=== PATIENT | male | born 1945 | race Caucasian/White ===

== ENCOUNTER 2023-03-13 08:19 | Day surgery (SDC) | payer MEDICARE, OTHER, SELFPAY ==
--- NOTE | 2023-03-13 | PATH_ITS ---
[facility] Accession Number: [id number] No. of containers..02 Tissue . 01 Material submitted: . PART A: colon - ASCENDING COLON POLYP PART B: colon - DESCENDING COLON POLYP . 01 Diagnosis: A. Ascending Colon, Polyp, Biopsy: Tubular adenoma. . B. Descending Colon, Polyp, Biopsy: Benign lymphoid aggregate. MRV 03/16/2023 1508 Local . 01 Electronically signed: . Karli Marmolejo MD, Pathologist NPI- [id number] . 01 Gross description: . Part A: ASCENDING COLON POLYP: Received in formalin is 1 fragment(s) of gage, soft tissue measuring 0.5 x 0.2 x 0.2 cm submitted entirely in 1 cassette(s) Part B: DESCENDING COLON POLYP: Received in formalin is 1 fragment(s) of gage, soft tissue measuring 0.3 x 0.3 x 0.3 cm submitted entirely in 1 cassette(s) /ROEL 03/14/2023 1928 Local . 01 Pathologist provided ICD-10: D12.2 . 01 CPT . 756543, 866555 Specimen Comment: A courtesy copy of this report has been sent to [phone] Performed at: 01 [facility] [address] [facility] [address] [place] [address] [address] [facility], [place], [place] [id number] MD Navdeep Kumar MD Phone: [phone]
[2023-03-13 08:36] VITALS: BP 143/71; PULSE 57; RESP 16; TEMP 36; O2SAT 96; BMI 30.7
[2023-03-13] MEDS: LACTATED RINGERS 1,000 ML 200 ML IV (08:59)
--- NOTE | 2023-03-13 09:23 | PM.HP.1 ---
History of Present Illness History of Present Illness Date Patient Seen: 03/13/23 Time Patient Seen: 09:23 Chief complaint: Colonoscopy Narrative: 77-year-old man here for screening colonoscopy. Personal history of colonic polyps last colonoscopy was approximately 5 years ago. No family history of intestinal malignancy in first-degree relatives. No abdominal complaints including but not limited to blood per rectum unintentional weight loss nausea anorexia or abdominal pain. [facility] Family History (Updated 08/08/16 @ 00:00 by Conversion Provider) Brother Heart disease Hypertension High cholesterol Father Heart disease Hypertension High cholesterol Mother Stroke Social History household members: none Smoking Status: Current every day smoker alcohol intake: current Meds Home Medications and Allergies Home Medications Medication Instructions Recorded Confirmed Type ASPIRIN (Aspirin EC) 81 mg PO Q DAY ##0 06/15/11 History FOLIC ACID (#FOLATE) 0.4 mg PO QDAY ##0 06/15/11 History Fish Oil 3,000 mg PO Q DAY ##0 06/15/11 History ibuprofen 200 mg capsule 200 mg PO PRN PRN ##0 06/15/11 History cetirizine 10 mg tablet 10 mg PO QDAYP PRN ##0 12/14/11 History CHOLECALCIFEROL (VITAMIN D3) 400 unit PO QDAY ##0 10/28/12 History (Vitamin D3) fluticasone propionate 50 2 spray intranasal BID ##16 11/28/16 Rx mcg/actuation nasal spray,suspension ciprofloxacin HCl 500 mg tablet 500 mg PO BID #20 tabs 01/24/17 Rx (Cipro) hydrocortisone acetate 30 mg 30 mg DC HS #20 supp 01/24/17 Rx rectal suppository (Proctocort) fluticasone propionate 220 0 INH BID ##3 05/28/17 Rx mcg/actuation HFA aerosol inhaler (Flovent HFA) rosuvastatin 40 mg tablet (Crestor) 40 mg PO QDAY #90 tabs 05/28/17 Rx testosterone 1 % (25 mg/2.5 gram) 1 % topical QDAY ##113 07/12/17 Rx transdermal gel packet (AndroGel) amlodipine 5 mg tablet (Norvasc) 5 mg PO QDAY #90 tabs 07/16/17 Rx lisinopril 20 25 PO QDAY 03/13/23 History mg-hydrochlorothiazide 12.5 mg tablet Allergies Allergy/AdvReac Type Severity Reaction Status Date / Time No Known Drug Allergies Allergy Verified 03/13/23 07:21 Exam Vital Signs (past 8 hours): - 03/13/23 08:36 Temperature 96.8 F L Pulse Rate 57 L Respiratory Rate 16 Blood Pressure 143/71 H Pulse Oximetry 96 Oxygen Delivery Method Room Air Oxygen Delivery Method Room Air Narrative Exam Narrative: General adult man alert oriented no distress Abdomen soft nontender nondistended Assessment & Plan Assessment and plan (1) Personal history of colonic polyps: Status: Acute Assessment & Plan narrative: The patient requires colorectal screening and colonoscopy is recommended. Technical details were discussed. Risks, benefits, alternatives explained. Risks including but not limited to myocardial infarction, aspiration, bleeding, pain, missed lesion, incomplete examination, need for further radiographic studies, colonic perforation, and need for major abdominal surgery were discussed. All questions were answered to their satisfaction, and they are in agreement with this plan.
[2023-03-13 09:51] VITALS: BP 122/62; PULSE 61; RESP 16; TEMP 36.1; O2SAT 98
--- NOTE | 2023-03-13 09:53 | P.OP.COLON_ITS ---
Operative Date/Time/Diagnoses Date of procedure: 03/13/23 Time of procedure: 09:53 Pre-op diagnosis: Personal history of colonic polyps Post-op diagnosis: other (Colonic polyps x2) Procedure & Clinicians Study performed: Colonoscopy and polypectomy Same procedure as scheduled: Yes Indications: Personal history of colonic polyps here for colorectal screening Surgeon: Karthik Rascon Procedure Notes Procedure in detail: The history and physical was performed/updated and the patient is ASA class is 2. The procedure was discussed in detail with the patient. Potential risks complications including infection, bleeding, missed diagnosis, perforation, need for surgery, and were explained. Their questions were answered and informed consent was obtained. Patient was brought to the procedure room and placed standard monitoring equipm ent. The patient's vital signs were monitored continuously throughout the entire procedure. Prior to starting time-out was performed. The patient was placed in the left lateral recumbent position. Procedural sedation was administered by anesthesia. Examination began with a thorough inspection of the perianal area there was no evidence of fissures, fistulae, external hemorrhoids or cutaneous malignancy. The colonoscopy scope was then placed into the anal canal and was advanced to the cecum, which was identified by the ileocecal valve, the appendiceal orifice and the confluence of the taenia. The scope was then slowly withdrawn examining colon thoroughly in all directions, irrigating it of any residual stool. The colon was most notable for severe diverticulosis involving the sigmoid and descending colon. Within the ascending colon there was a 5 mm polyp removed with biopsy forceps. A approximately 5 mm polyp was identified descending colon and removed with forceps. A previously inked section of the sigmoid colon was closely examined the tattoo was visible but there was no evidence of residual polyp. The patient tolerated the procedure well. They will be discharged once criteria are met. The prep was of fair quality. The withdrawl time was 6 minutes. Specimen(s): other (Ascending and descending colonic polyps) Impression: Colonic polyps x2 Post-procedure Recommendations: High fiber diet Plan for aftercare: Follow-up is dependent on pathology findings Disposition: same day surgery
[2023-03-13 09:56] VITALS: BP 115/63; PULSE 73; RESP 16; O2SAT 99
[2023-03-13 10:01] VITALS: BP 125/59; PULSE 58; RESP 16; O2SAT 100
[2023-03-13 10:06] VITALS: BP 125/59; PULSE 66; RESP 16; TEMP 36.2; O2SAT 99
== END 2023-03-13 10:26 | disposition home or self-care (01) ==
PROVIDERS: PCP Family Medicine; Referring Provider Surgery; Visit Provider Surgery
PROC: 0DJD8ZZ Inspection of Lower Intestinal Tract, Via Natural or Artificial Opening Endoscopic (ICD-10-PCS; CPT 45378; principal; 2023-03-13 09:15)
DX: Z12.11 Encounter for screening for malignant neoplasm of colon (principal); Z86.010 Personal history of colon polyps; K57.30 Diverticulosis of large intestine without perforation or abscess without bleeding; D12.2 Benign neoplasm of ascending colon
CPT/HCPCS: 45380; J2704

== ENCOUNTER → 2023-03-20 11:56 | Outpatient (CLI) | payer MEDICARE, OTHER, SELFPAY ==
--- NOTE | 2023-03-20 | DI.CT.S_ITS ---
PROCEDURE: CT CHEST WO CON INDICATIONS: Nicotine dependence TECHNIQUE: Noncontrast 2.0-2.5 mm thick sections acquired from the pulmonary apices to the posterior costophrenic angles. 7 mm thick axial MIP, and 5 mm coronal and sagittal reformats were then acquired. A low radiation dose technique was utilized. COMPARISON: None. FINDINGS: Image quality: Diagnostic, given the low radiation dose technique. Lungs and pleura: No pulmonary nodules or acute airspace opacities. Very mild tree-in-bud pulmonary radiopacities are present within the posterior aspect of the left lower lobe (series 3/image 127). No pleural effusion or pneumothorax. Mediastinum: Heart size is normal. No pericardial effusion. No mediastinal adenopathy by size criteria. Thoracic aorta and central pulmonary arteries are normal in size. Dense atheromatous calcifications are present at the thoracic aortic arch and within the descending thoracic aorta. Esophagus is normal in caliber. No hiatal hernia. Bones and chest wall: Patient is status post median sternotomy. No suspicious bony lesions. No vertebral body compression fractures. No axillary or supraclavicular adenopathy by size criteria. Thyroid gland is unremarkable. Abdomen: Visualized upper abdomen solid organs and bowel loops appear normal in the absence of contrast. IMPRESSION: 1. Tree-in-bud pulmonary radiopacities within the left lobe suggesting mild pulmonary infection. Consider 3-6 month follow-up to ensure resolution. 2. No other suspicious pulmonary nodules or pulmonary lesions. 3. Dense aortic atherosclerosis. LUNG-RADS 3; probably benign. 3-6 month follow-up to ensure resolution of probable pulmonary infection or aspiration. Dictated by: Neetu Tovar M.D. on 03/20/2023 at 13:38 Approved by: Neetu Tovar M.D. on 03/20/2023 at 13:41
== END ==
PROVIDERS: PCP Family Medicine; Referring Provider Family Medicine; Visit Provider Family Medicine
DX: I70.0 Atherosclerosis of aorta (principal); F17.200 Nicotine dependence, unspecified, uncomplicated
CPT/HCPCS: 71250

== ENCOUNTER → 2024-07-22 12:03 | Outpatient (CLI) | payer MEDICARE, OTHER, SELFPAY ==
--- NOTE | 2024-07-22 13:00 | DI.CT.S_ITS ---
PROCEDURE: CT LUNG LOW DOSE SCREENING INDICATIONS: CURRENT SMOKER,PERSONAL HX NICOTINE DEPENDENCE TECHNIQUE: Noncontrast 2.0-2.5 mm thick sections acquired from the pulmonary apices to the posterior costophrenic angles. 7 mm thick axial MIP, and 5 mm coronal and sagittal reformats were then acquired. For radiation dose reduction, the following was used: automated exposure control, adjustment of mA and/or kV according to patient size. COMPARISON: None. FINDINGS: Image quality: Diagnostic. Lower Neck: No enlarged lymph nodes. Thyroid: No thyroid nodules which require sonographic follow up, per consensus guidelines. Axillae: No enlarged lymph nodes. Chest Wall: Unremarkable. Bones: 2 mm Lungs and Pleura: No pneumothorax or pleural effusions. 3 mm solid nodule, right lower lobe (series 3, image 140). Heart: Heart size is normal. No pericardial effusion. Prior CABG. Thoracic Vessels: The aorta and pulmonary arteries demonstrate normal size. Mediastinum and Saranya: No enlarged lymph nodes. Esophagus: No wall thickening. No hiatal hernia. Upper Abdomen: Visualized upper abdomen solid organs and bowel loops appear normal. IMPRESSION: No suspicious pulmonary nodules. LUNG-RADS 2; continued annual screening, if eligible. Clinically Significant Non-pulmonary Findings: None. Dictated by: Chaitanya Valverde M.D. on 07/22/2024 at 15:41 Approved by: Chaitanya Valverde M.D. on 07/22/2024 at 15:44
== END ==
LOC: CT 12:04
PROVIDERS: PCP Family Medicine; Referring Provider Family Medicine; Visit Provider Family Medicine
DX: F17.210 Nicotine dependence, cigarettes, uncomplicated; Z12.2 Encounter for screening for malignant neoplasm of respiratory organs; R91.1 Solitary pulmonary nodule; Z95.1 Presence of aortocoronary bypass graft
CPT/HCPCS: 71271